=== PATIENT | male | born 1950 | race Caucasian/White ===

== ENCOUNTER 2021-09-30 10:07 | Emergency (ER) | payer MEDICARE ==
[~2021-09-30] VITALS: Ht 170.2 cm; Wt 65.8 kg
[2021-09-30 10:21] VITALS: BP 161/109
--- NOTE | 2021-09-30 10:26 | NUR ---
PT W/C ASSISTED TO ER BED 9
--- NOTE | 2021-09-30 11:00 | NUR ---
71 Y/O MALE BIB C/O OF SHARP TINGLING PAIN 10/10 IN THE RIGHT HIP RADIATING TO THE RIGHT LEG. NO BRUISES, NO SWELLING, NO SKIN TEARS NOTED ON THE AREA. PT ABLE TO LIFT AND MOVE AFFECTED AREA. UNSTEADY IN GAIT. DENIES ANY FALLS. PMH; SCIATICA, HTN NKA
--- NOTE | 2021-09-30 11:27 | NUR ---
DR BURLESON AT BEDSIDE
[2021-09-30] MEDS ORDERED: KETOROLAC 60 MG/2 ML VIAL IM ONE (11:30)
[2021-09-30] MEDS ORDERED: ACET-8386 PO (11:40)
[2021-09-30] MEDS ORDERED: NAPR-1704 PO (11:40)
--- NOTE | 2021-09-30 12:00 | NUR ---
AFTER PT MEDICATED, AMBULATED WITH STEADY GAIT WITHOUT ASSISTANCE
--- NOTE | 2021-09-30 12:15 | NUR ---
Patient discharged with v/s stable. Written and verbal after care instructions ABOUT PAIN given and explained. Patient alert, oriented and verbalized understanding of instructions. Wheel Chair Assisted with to car. All questions addressed prior to discharge. ID band removed. Patient advised to follow up with PMD. Rx of NAPROXEN AND NORCO 5-325 given. Patient educated on indication of medication including possible reaction and side effects. Opportunity to ask questions provided and answered.
== END 2021-09-30 12:15 | disposition home or self-care (01) ==
LOC: MED 10:07
DX: M54.32 Sciatica, left side (principal)
CPT/HCPCS: 96372; 99283; J1885

== ENCOUNTER 2023-04-01 16:59 | Emergency (ER) | payer MEDICARE ==
[~2023-04-01] VITALS: Ht 157.5 cm; Wt 68.0 kg
[~2023-04-01 16:59] MED LIST: ACET-8905 PO; NAPR-1704 PO
[2023-04-01 17:27] VITALS: BP 179/77; PULSE 84; RESP 14; TEMP 98.4; O2SAT 99
[2023-04-01 17:36] VITALS: BP 179/77; PULSE 84; RESP 14; TEMP 98.4; O2SAT 99
== END 2023-04-01 17:57 | disposition left against medical advice (07) ==
LOC: MED 16:59
DX: H57.89 Other specified disorders of eye and adnexa (principal); I10 Essential (primary) hypertension; Z79.899 Other long term (current) drug therapy
CPT/HCPCS: 99281